=== PATIENT | female | born 1990 | race Caucasian/White ===

== ENCOUNTER 2019-01-08 10:05 | Emergency (ER) | payer OTHER, SELFPAY ==
[2019-01-08 10:07] VITALS: BP 141/82; PULSE 71; RESP 17; TEMP 37.1; O2SAT 96; BMI 31.4
[2019-01-08 11:12] LABS: Mucous, Urine 0 SEEN /hpf (<or=2+); Red Blood Cells-Urine 0 SEEN /hpf (0-5)
[2019-01-08 11:16] LABS: Eosinophils% 4.4 % (0-5); Hematocrit 43.7 % (37-47); Hemoglobin 14.5 g/dL (12.0-15.0); Lymphocyte % 32.2 % (19-41); Mean Corp Hgb Conc 33.2 g/dL (32-36); Mean Corpuscular Hgb 29.7 pg (27.0-32.0); Mean Corpuscular Volume 89.4 fL (81-99); Mean Platelet Vol. 9.1 fl (6.2-12.0); Monocyte% 7.2 % (0-10); Neutrophil % 55.5 % (47-70); Platelet Count 320 K/mm3 (150-450); RBC Distribution Width SD 39.1 fl (35.1-43.9); Red Blood Count 4.89 M/mm3 (4.2-5.4); White Blood Count 5.9 K/mm3 (4.4-11.0)
[2019-01-08 11:17] LABS: Absolute Lymphocyte Count 1.91 X10^3/uL (0.83-4.51); Absolute Neutrophil Count 3.3 X10^3/uL (2.0-7.7); Basophil# 0.03 X10^3/uL; Basophil% 0.5 % (0-1); Eosinophil# 0.26 X10^3/uL; Lymphocyte # 1.91 X10^3/ul (4.0); Monocyte# 0.43 X10^3/uL; NRBC Flagged by Analyzer 0 % (0-5)
[2019-01-08 11:19] LABS: Color, Urine Yellow (Yellow); Glucose, Dipstick Normal (Normal); Ketone-Dipstick Negative (Negative); Leukocyte Esterase-Dipstick 25 /ul (Negative); Nitrite-Dipstick Negative (Negative); Occult Blood-Urine Negative /ul (Negative); Protein-Dipstick Negative (Negative); Urine Bilirubin Dipstick Negative (Negative); Urine Clarity Clear (Clear); Urine Urobilinogen Normal (Normal); Urine pH 6.5 (5.0 - 8.0)
[2019-01-08 11:22] LABS: Internal QC Validated? YES +Cl - CLEAR BKGD; Pregnancy, Urine Negative Negative
[2019-01-08 11:28] LABS: Bacteria 2+ /hpf (None Seen); Squamous Epithelial Cells - UA 0-5 SEEN /hpf (5-10); White Blood Cells 0-5 SEEN /hpf (0-5)
[2019-01-08 11:37] LABS: ALB/GLOB Ratio 1.1 RATIO (0.9-2.4); AST(SGOT) 36 U/L (15-37); Alanine Aminotransfer ALT/SGPT 81 U/L (13-56); Albumin, Serum 3.8 g/dL (3.2-5.0); Alkaline Phosphatase 64 U/L (45-117); Anion Gap 13 (5-15); BUN 17 mg/dL (7-18); Calcium,Total 9.1 mg/dL (8.5-10.1); Chloride 109 mmol/L (98-107); Creatinine, Serum 1.06 mg/dL (0.55-1.02); EST Glomerular Filtration Rate 66 mL/min (>60); Est Glom Filt Rate - Afr Amer 80 mL/min (>60); Estimated Creatinine Clearance 75.29 ml/min; Globulin 3.6 g/dL (2.2-4.2); Glucose 124 mg/dL (74-106); Potassium 3.6 mmol/L (3.5-5.1); Protein, Total 7.4 g/dL (6.4-8.2); Sodium Level 144 mmol/L (136-145)
[2019-01-08 13:03] LABS: Chlamydia Trachomatis by PCR Negative (Negative); Neisserai gonorrhoeae by PCR Negative (Negative); Probe Check PASS; Sample Adequacy Control PASS; Specimen Processing Control PASS
--- NOTE | 2019-01-08 13:44 | ED.VIS.GEN ---
History of Present Illness Informant: Patient Onset: Weeks - 2 Context: Gradual Onset Timing: Continuous Maximum Severity: Mild Associated Symptoms: Fever Narrative: She developed a Bartholin cyst about 2 weeks ago that spontaneously drained. She is been having fevers and feels like she is redeveloping the Bartholin cyst. She was taking Bactrim and then switched to clindamycin. She has been in contact with her [facility] [facility] this week including yesterday. She denies nausea and vomiting. She complains of mild pelvic cramping and back pain. She does not appreciate significant discharge. Has dysuria frequency. Prior similar symptoms: No Recent Illness/Hospitalization: No <Sanjuana Alas - Last Filed: 01/08/19 15:08> <Evelyn Spencer - Last Filed: 01/10/19 11:49> Chief Complaint: Abscess Past Medical History Prior records reviewed: Yes Past Medical History: - - Ovarian cyst ,Migraines, Surgical History: - - Breast lumpectomy, T&A Lives: With Family Smoking Status: Never smoker Drugs: None <Sanjuana Alas - Last Filed: 01/08/19 15:08> <Evelyn Spencer - Last Filed: 01/10/19 11:49> - Allergies and Home Meds Allergies/Adverse Reactions: Allergies nickel Allergy (Verified 01/08/19 10:07) Rash Primary Care Physician: Care Physician,No Primary [Primary Care Provider] - Review of Systems All systems negative except as indicated General: Reports: Fever. Denies: Chills, Sweats Eyes: Denies: Visual changes - bilaterally, Diplopia ENT: Denies: Rhinorrhea, Sore throat Cardiovascular: Denies: Chest pain, Palpitations Respiratory: Denies: Dyspnea, Cough, Dyspnea on exertion Gastrointestinal: Reports: Abdominal pain. Denies: Nausea, Vomiting, Diarrhea, Melena, Hematochezia Genitourinary: Reports: - - Vaginal pain, recent reported Bartholin cyst with spontaneous drainage. Denies: Dysuria, Hematuria, Frequency Musculoskeletal: Denies: Myalgias, Arthralgias, Neck pain, Back pain, Extremity Pain Skin: Denies: Rash, Wounds Neurological: Denies: Headache, Weakness, Numbness <Sanjuana Alas - Last Filed: 01/08/19 15:08> Genitourinary: Reports: - <Evelyn Spencer - Last Filed: 01/10/19 11:49> Physical Exam Vital Signs/Narrative: Vital Signs Temp Pulse Resp BP Pulse Ox 01/08/19 10:07 98.7 F 71 17 141/82 H 96 Inital Vital Signs reviewed: Yes General: Well nourished, Well developed, No Acute Distress Head: Normocephalic, Atraumatic Eyes: Perrl, EOMI ENT: Moist mucous membranes, No rhinorrhea Neck: Supple, Nontender Cardiovascular: Regular rate, Regular rhythm, No murmurs Respiratory: No distress, CTA bilaterally, Chest nontender Abdomen: Soft, Nondistended, Normal bowel sounds, Tender. Negative for: Guarding, Rebound tenderness, Ventral hernia, Inguinal hernia, Umbilical hernia, Hernia reducible, Hernia irreducible, Psoas sign, Obturator sign, Rovsig's sign, Ruiz's sign : - - Cellulitis there is a fair amount of thin white discharge present on exam. Right labia is not swollen and there is no signs of developing Bartholin cyst. There was no cervical motion tenderness or adnexal mass or appreciable tenderness. Back: Nontender, Normal Inspection Extremities: Nontender, No edema Skin: Normal color, No rash Neurological: Alert, Oriented x3, Cranial nerves II-XII grossly intact, Normal Strength, Normal Sensation Psychological: Normal affect, Normal Mood <Sanjuana Alas - Last Filed: 01/08/19 15:08> : - <Evelyn Spencer - Last Filed: 01/10/19 11:49> Diagnostic/Tx/Re-eval - Medical Decision Making Laboratory tests were pursued to rule out sepsis. Her vital signs were stable and she was afebrile. Laboratory tests were also unremarkable. She had no signs of sepsis or toxicity. Pelvic exam revealed no reforming Bartholin cyst. Vaginal discharge was cultured for gonorrhea and chlamydia which was negative. Her discharge is not clumpy like he is and did not have a foul odor like BV. There is no cervical motion tenderness as well. I was able to get a hold of Dr. Leiva her [facility] [facility] who is comfortable patient being discharged to follow-up in the office this week and to continue clindamycin as prescribed. Patient was agreeable to this plan. She was discharged in stable condition. <Sanjuana Alas - Last Filed: 01/08/19 15:08> Labs & Testing WBC 5.9 K/mm3 (4.4-11.0) 01/08/19 10:40 RBC 4.89 M/mm3 (4.2-5.4) 01/08/19 10:40 Hgb 14.5 g/dL (12.0-15.0) 01/08/19 10:40 Hct 43.7 % (37-47) 01/08/19 10:40 MCV 89.4 fL (81-99) 01/08/19 10:40 MCH 29.7 pg (27.0-32.0) 01/08/19 10:40 MCHC 33.2 g/dL (32-36) 01/08/19 10:40 RDW Std Deviation 39.1 fl (35.1-43.9) 01/08/19 10:40 RDW Coeff of Kelsy 12.0 % (11.6-14.6) 01/08/19 10:40 Plt Count 320 K/mm3 (150-450) 01/08/19 10:40 MPV 9.1 fl (6.2-12.0) 01/08/19 10:40 Immature Gran % (Auto) 0.200 % (0.0-0.9) 01/08/19 10:40 Neut % (Auto) 55.5 % (47-70) 01/08/19 10:40 Lymph % (Auto) 32.2 % (19-41) 01/08/19 10:40 Larue % (Auto) 7.2 % (0-10) 01/08/19 10:40 Eos % (Auto) 4.4 % (0-5) 01/08/19 10:40 Baso % (Auto) 0.5 % (0-1) 01/08/19 10:40 Absolute Neuts (auto) 3.3 X10^3/uL (2.0-7.7) 01/08/19 10:40 Absolute Lymphs (auto) 1.91 X10^3/uL (0.83-4.51) 01/08/19 10:40 Nucleated RBC % 0 % (0-5) 01/08/19 10:40 Sodium 144 mmol/L (136-145) 01/08/19 10:40 Potassium 3.6 mmol/L (3.5-5.1) 01/08/19 10:40 Chloride 109 mmol/L (98-107) H 01/08/19 10:40 Carbon Dioxide 22.0 mmol/L (21.0-32.0) 01/08/19 10:40 Anion Gap 13 (5-15) 01/08/19 10:40 BUN 17 mg/dL (7-18) 01/08/19 10:40 Creatinine 1.06 mg/dL (0.55-1.02) H 01/08/19 10:40 Estim Creat Clear Calc 75.29 ml/min 01/08/19 10:40 Est GFR (MDRD) Af Amer 80 mL/min (>60) 01/08/19 10:40 Est GFR (MDRD) Non-Af 66 mL/min (>60) 01/08/19 10:40 BUN/Creatinine Ratio 16.0 RATIO (10-20) 01/08/19 10:40 Glucose 124 mg/dL (74-106) H 01/08/19 10:40 Calcium 9.1 mg/dL (8.5-10.1) 01/08/19 10:40 Total Bilirubin 0.90 mg/dL (0.20-1.00) 01/08/19 10:40 AST 36 U/L (15-37) 01/08/19 10:40 ALT 81 U/L (13-56) H 01/08/19 10:40 Alkaline Phosphatase 64 U/L (45-117) 01/08/19 10:40 Total Protein 7.4 g/dL (6.4-8.2) 01/08/19 10:40 Albumin 3.8 g/dL (3.2-5.0) 01/08/19 10:40 Globulin 3.6 g/dL (2.2-4.2) 01/08/19 10:40 Albumin/Globulin Ratio 1.1 RATIO (0.9-2.4) 01/08/19 10:40 Urine Color Yellow (Yellow) 01/08/19 10:55 Urine Clarity Clear (Clear) 01/08/19 10:55 Urine pH 6.5 (5.0 - 8.0) 01/08/19 10:55 Ur Specific [place] 1.020 (1.002-1.030) 01/08/19 10:55 Urine Protein Negative mg/dl (Negative) 01/08/19 10:55 Urine Glucose (UA) Normal mg/dl (Normal) 01/08/19 10:55 Urine Ketones Negative mg/dl (Negative) 01/08/19 10:55 Urine Occult Blood Negative /ul (Negative) 01/08/19 10:55 Urine Nitrite Negative (Negative) 01/08/19 10:55 Urine Bilirubin Negative mg/dL (Negative) 01/08/19 10:55 Urine Urobilinogen Normal mg/dl (Normal) 01/08/19 10:55 Ur Leukocyte Esterase 25 /ul (Negative) H 01/08/19 10:55 Urine RBC 0 SEEN /hpf (0-5) 01/08/19 10:55 Urine WBC 0-5 SEEN /hpf (0-5) 01/08/19 10:55 Ur Squamous Epith Cells 0-5 SEEN /hpf (5-10) 01/08/19 10:55 Urine Bacteria 2+ /hpf (None Seen) 01/08/19 10:55 Urine Mucus 0 SEEN /hpf (<or=2+) 01/08/19 10:55 Urine Test Negative Negative 01/08/19 10:55 Chlam trachomat DNA PCR Negative (Negative) 01/08/19 10:55 N.gonorrhoeae DNA (PCR) Negative (Negative) 01/08/19 10:55 - Medical Decision Making Patient is evaluated by meself in addition to [employer]. Patient is evaluated for continued subjective fevers and lower abdominal pain. She is currently on antibiotics for Bartholin gland cyst that had spontaneously drained. Patient is afebrile in the ED and has normal vital signs. She is well appearing and her abdomen is soft. I was present for pelvic exam. She does not had adnexal tenderness or abnormal vaginal discharge. I do not suspect PID or TOA at this time. In addition, patient did have a small lesion on her left labia majora that is tender to palpation. This is swabbed for HSV, however it does appear atypical for HSV. She has normal WBC at no other findings consistent with sepsis. The cause of the patients's symptoms is not clear, however I do agree that she is a good candidate for further outpatient evaluation by her OBGYN. Case discussed with Dr. Leiva OBGYN, who is updated and agreeable with this plan. <Evelyn Spencer - Last Filed: 01/10/19 11:49> ED Disposition <Sanjuana Alas - Last Filed: 01/08/19 15:08> <Evelyn Spencer - Last Filed: 01/10/19 11:49> - Plan for ED Patient: Disposition: Home or Assisted Living Diagnosis: Fever Instructions: FEBRILE ILLNESS, Uncertain Cause (Adult) Referrals: Care Physician,No Primary [Primary Care Provider] - Additional Instructions: Continue antibiotics. [facility]
[2019-01-08 13:57] VITALS: PULSE 77; RESP 16; TEMP 37.7
== END 2019-01-08 13:57 | disposition home or self-care (01) ==
PROVIDERS: Emergency Provider Nurse Practitioner
DX: R50.9 Fever, unspecified (principal); N90.89 Other specified noninflammatory disorders of vulva and perineum; N89.8 Other specified noninflammatory disorders of vagina; R10.30 Lower abdominal pain, unspecified; M54.9 Dorsalgia, unspecified
CPT/HCPCS: 80053; 81001; 81025; 85025; 87255; 87491; 87591; 99284; A4216

== ENCOUNTER 2019-05-03 18:15 | Emergency (ER) | payer OTHER, SELFPAY ==
[2019-05-03 18:17] VITALS: BP 150/86; PULSE 74; RESP 19; TEMP 37.1; O2SAT 99; BMI 32.8
--- NOTE | 2019-05-03 18:40 | US_ITS ---
STUDY: ABDOMINAL ULTRASOUND - RIGHT UPPER QUADRANT REASON FOR VISIT: Female, 29 years old RUQ PAIN INTENSE FOR A WEEK AND A HALF TECHNIQUE: Ultrasound evaluation of the right upper quadrant was performed with real-time and static sheldon-scale imaging. TECHNICAL QUALITY: Adequate. COMPARISON: None. FINDINGS: Liver: The liver measures 14.7 cm. There is increased echogenicity consistent with fatty infiltration. The bile ducts are within normal limits. There is hepatic color flow. The direction of portal flow is hepatopetal. 2.4 x 1.9 x 1.9 cm hypoechoic solid lesion of the medial superior right liver and a 2.4 x 2.7 x 2.2 cm hypoechoic solid lesion of the inferior right liver. Gallbladder: Normal distended gallbladder. The gallbladder wall measures 1.8 mm. There is a negative sonographic Ruiz''s sign. There is no pericholecystic fluid. There are no gallstones. Common Bile Duct (C.B.D.): The common bile duct measures 4.0 mm. Pancreas: Normal size of the head, body and tail of the pancreas. There is normal echogenicity of the pancreas. There is no demonstrated pancreatic mass or cyst. Right Kidney: Normal size of the right kidney. The right kidney measures 10.5 x 5.3 x 4.6 cm. Normal renal cortex. The right cortex measures 1.2 cm. There is no demonstrated renal mass or cyst. There is no right hydronephrosis. US/Gallbladder IMPRESSION: Normal gallbladder. Normal pancreas. Normal right kidney. 2.4 x 1.9 x 1.9 cm lesion of the medial superior right liver and a 2.4 x 2.7 x 2.2 cm solid lesion of the inferior right liver likely to be benign hemangioma in this age group. Electronically Signed: Jen Stevens MD at 20:26 EST , Service support ,
--- NOTE | 2019-05-03 18:43 | ED.VIS.GI ---
History of Present Illness Chief Complaint: Abd Pain Informant: Patient - Abdominal Pain/Flank Pain Onset: Days Context: Gradual Onset Timing: Intermittent Quality: Sharp, Stabbing Location: RUQ - Nausea/Vomiting/Emesis GI Symptom: Nausea, Vomiting Narrative: Patient is a 29-year-old female with history of abnormal HIDA scan presenting with worsening right upper quadrant pain. She states she has had right upper quadrant pain and digestion issues for the past few months. She had HIDA scan outpatient which showed poor function and is scheduled to see Dr. Hernandez for surgical consultation tomorrow morning. Patient states that for the past week she has had significantly worsening pain in her right upper quadrant. It became unbearable today which is why she came to the emergency room. She describes it as sharp and stabbing and it radiates to her right shoulder blade. She had vomiting on [place], 1 week ago but none since. She has associated nausea. States the pain was so bad today she felt like she might pass out. Patient ate a tricky sandwich, bagel and scrambled eggs today. She did just drive back from [place] where she was visiting family. She denies any associated urinary symptoms. She denies any abnormal vaginal discharge. She has not had a. For the past 7 months but that is because she had a Nexplanon placed. She notes her bowel movements have been slightly more regular and looser than normal over the past few months. She denies associated chest pain, shortness of breath or difficulty breathing. She denies any other complaints at this time. Past Medical History - Allergies and Home Meds Allergies/Adverse Reactions: Allergies nickel Allergy (Verified 05/03/19 18:16) Rash Primary Care Physician: Suzanne Manzanares NP-C [Primary Care Provider] - Surgical History: - - Breast lumpectomy, T&A Smoking Status: Never smoker Review of Systems General: Denies: Chills, Fever, Sweats Eyes: Denies: Visual changes - bilaterally, Diplopia ENT: Denies: Rhinorrhea, Sore throat Cardiovascular: Denies: Chest pain, Palpitations Respiratory: Denies: Dyspnea, Cough, Dyspnea on exertion Gastrointestinal: Reports: Abdominal pain, Nausea, Vomiting. Denies: Diarrhea, Melena, Hematochezia Genitourinary: Denies: Dysuria, Hematuria, Frequency Musculoskeletal: Denies: Back pain, Extremity Pain Skin: Denies: Rash, Wounds Neurological: Denies: Headache, Weakness, Numbness Physical Exam Vital Signs/Narrative: Vital Signs Temp Pulse Resp BP Pulse Ox 05/03/19 18:17 98.7 F 74 19 H 150/86 H 99 Inital Vital Signs reviewed: Yes General: Well nourished, Well developed, No Acute Distress Head: Normocephalic, Atraumatic Eyes: Perrl, EOMI ENT: Moist mucous membranes, No rhinorrhea Neck: Supple, Nontender Cardiovascular: Regular rate, Regular rhythm, No murmurs Respiratory: No distress, CTA bilaterally, Chest nontender Abdomen: Soft, Nondistended, Normal bowel sounds, Tender - Right upper quadrant. Negative for: Guarding, Rebound tenderness, Ruiz's sign Back: Nontender, Normal Inspection. Negative for: CVA tenderness Extremities: Nontender, No edema Skin: Normal color, No rash Neurological: Alert, Oriented x3, Cranial nerves II-XII grossly intact, Normal Strength, Normal Sensation Psychological: Normal affect, Normal Mood Diagnostic/Tx/Re-eval Clinical Impression(s) from Imaging Studies Gallbladder Ultrasound 05/03/19 18:40 IMPRESSION: Normal gallbladder. Normal pancreas. Normal right kidney. 2.4 x 1.9 x 1.9 cm lesion of the medial superior right liver and a 2.4 x 2.7 x 2.2 cm solid lesion of the inferior right liver likely to be benign hemangioma in this age group. Electronically Signed: Jen Stevens MD at 20:26 EST , Service support , Laboratory Data 05/03/19 05/03/19 05/03/19 18:55 19:00 19:00 WBC 7.4 RBC 4.86 Hgb 14.0 Hct 42.3 MCV 87.0 MCH 28.8 MCHC 33.1 RDW Std Deviation 38.3 RDW Coeff of Kelsy 12.0 Plt Count 304 MPV 9.7 Immature Gran % (Auto) 0.100 Neut % (Auto) 57.7 Lymph % (Auto) 32.3 [place] % (Auto) 6.5 Eos % (Auto) 2.7 Baso % (Auto) 0.7 Absolute Neuts (auto) 4.3 Absolute Lymphs (auto) 2.40 Nucleated RBC % 0 Sodium 141 Potassium 3.5 Chloride 110 H Carbon Dioxide 23.0 Anion Gap 8 BUN 15 Creatinine 0.80 Estim Creat Clear Calc 98.88 Est GFR (MDRD) Af Amer 110 Est GFR (MDRD) Non-Af 91 BUN/Creatinine Ratio 18.8 Glucose 89 Calcium 8.6 Total Bilirubin 0.30 Direct Bilirubin 0.10 AST 13 L ALT 39 Alkaline Phosphatase 57 Total Protein 7.9 Albumin 3.9 Globulin 4.0 Lipase 116 Serum , Qual Urine Color Yellow Urine Clarity Sl. Cloudy Urine pH 5.0 Ur Specific [place] 1.025 Urine Protein 15 H Urine Glucose (UA) Normal Urine Ketones Negative Urine Occult Blood 25 H Urine Nitrite Negative Urine Bilirubin Negative Urine Urobilinogen Normal Ur Leukocyte Esterase 500 H Urine RBC 0-5 SEEN Urine WBC 10-25 SEEN Ur Squamous Epith Cells 5-10 SEEN Amorphous Sediment 1+ URATE Urine Bacteria 2+ Urine Mucus 0 SEEN 05/03/19 19:00 WBC RBC Hgb Hct MCV MCH MCHC RDW Std Deviation RDW Coeff of Kelsy Plt Count MPV Immature Gran % (Auto) Neut % (Auto) Lymph % (Auto) [place] % (Auto) Eos % (Auto) Baso % (Auto) Absolute Neuts (auto) Absolute Lymphs (auto) Nucleated RBC % Sodium Potassium Chloride Carbon Dioxide Anion Gap BUN Creatinine Estim Creat Clear Calc Est GFR (MDRD) Af Amer Est GFR (MDRD) Non-Af BUN/Creatinine Ratio Glucose Calcium Total Bilirubin Direct Bilirubin AST ALT Alkaline Phosphatase Total Protein Albumin Globulin Lipase Serum , Qual NEGATIVE Urine Color Urine Clarity Urine pH Ur Specific [place] Urine Protein Urine Glucose (UA) Urine Ketones Urine Occult Blood Urine Nitrite Urine Bilirubin Urine Urobilinogen Ur Leukocyte Esterase Urine RBC Urine WBC Ur Squamous Epith Cells Amorphous Sediment Urine Bacteria Urine Mucus - Medical Decision Making Patient is evaluated for worsening right abdominal pain. She has had some urinary frequency. She has known dysfunction of her gallbladder. Ultrasound and lab work obtained to rule out acute cholecystitis. This is all largely normal. Urinalysis does show 500 leuk esterase which might be consistent with UTI. This also could be contributing to her symptoms. She will be covered for pyelonephritis with a 7 day course of Keflex. Urine culture is sent. Patient has appointment to see Dr. Hernandez, surgery tomorrow for further evaluation of her gallbladder. At this time I feel that she is stable for outpatient follow-up. Her abdomen is soft and I do not think a CT the abdomen pelvis is indicated at this time. She is otherwise well-appearing.Patient is given 1 dose of morphine and Zofran for symptom control as well as IV fluids. She is given first dose of antibiotics in the emergency room. ED Disposition - Plan for ED Patient: Disposition: Home or Assisted Living Diagnosis: Abdominal pain, UTI (urinary tract infection) Instructions: ABDOMINAL PAIN, Unknown Cause, (Female), Bladder Infection, Female (Adult) Prescriptions: Cephalexin [Keflex] 500 mg PO BID #14 cap Prescription Printed Ibuprofen [Motrin] 600 mg PO Q8H PRN PRN #20 tab PRN Reason: Pain Or Fever Prescription Printed Ondansetron [Zofran Odt] 4 mg PO Q8H PRN PRN #10 tab PRN Reason: Nausea Prescription Printed Referrals: Suzanne Manzanares NP-C [Primary Care Provider] - Additional Instructions: Your testing today shows that you have findings associated with a urinary tract infection and possible early kidney infection. You will be started on antibiotics for this. Please continue to follow-up with your surgeon tomorrow for further evaluation of your gallbladder. Return to emergency with any worsening symptoms.
[2019-05-03] MEDS: 0.9% Normal Saline 1,000 ML 999 ML IV (18:53)
[2019-05-03] MEDS: Morphine 4 MG/ML Syringe IV (18:57)
[2019-05-03] MEDS: Ondansetron 4 MG/2 ML Vial IV (18:57)
[2019-05-03 19:01] LABS: Mucous, Urine 0 SEEN /hpf (<or=2+)
[2019-05-03 19:03] LABS: Color, Urine Yellow (Yellow); Glucose, Dipstick Normal (Normal); Ketone-Dipstick Negative (Negative); Leukocyte Esterase-Dipstick 500 /ul (Negative); Nitrite-Dipstick Negative (Negative); Occult Blood-Urine 25 /ul (Negative); Protein-Dipstick 15 mg/dl (Negative); Specific Gravity, Urine 1.025 (1.002-1.030); Urine Bilirubin Dipstick Negative (Negative); Urine Clarity Sl. Cloudy (Clear); Urine Urobilinogen Normal (Normal)
[2019-05-03 19:12] LABS: Amorphous Sediment 1+ URATE; Bacteria 2+ /hpf (None Seen); Red Blood Cells-Urine 0-5 SEEN /hpf (0-5); Squamous Epithelial Cells - UA 5-10 SEEN /hpf (5-10); White Blood Cells 10-25 SEEN /hpf (0-5)
[2019-05-03 19:30] LABS: Absolute Neutrophil Count 4.3 X10^3/uL (2.0-7.7); Basophil# 0.05 X10^3/uL; Basophil% 0.7 % (0-1); Eosinophils% 2.7 % (0-5); Hematocrit 42.3 % (37-47); Lymphocyte % 32.3 % (19-41); Mean Corp Hgb Conc 33.1 g/dL (32-36); Mean Corpuscular Hgb 28.8 pg (27.0-32.0); Mean Platelet Vol. 9.7 fl (6.2-12.0); Monocyte# 0.48 X10^3/uL; Monocyte% 6.5 % (0-10); NRBC Flagged by Analyzer 0 % (0-5); Neutrophil # 4.29 X10^3/uL (2.7-7.7); Neutrophil % 57.7 % (47-70); Platelet Count 304 K/mm3 (150-450); RBC Distribution Width SD 38.3 fl (35.1-43.9); Red Blood Count 4.86 M/mm3 (4.2-5.4); White Blood Count 7.4 K/mm3 (4.4-11.0)
[2019-05-03 19:49] LABS: AST(SGOT) 13 U/L (15-37); Alanine Aminotransfer ALT/SGPT 39 U/L (13-56); Albumin, Serum 3.9 g/dL (3.2-5.0); Alkaline Phosphatase 57 U/L (45-117); Anion Gap 8 (5-15); BUN 15 mg/dL (7-18); BUN/Creat Ratio 18.8 RATIO (10-20); Calcium,Total 8.6 mg/dL (8.5-10.1); Chloride 110 mmol/L (98-107); EST Glomerular Filtration Rate 91 mL/min (>60); Est Glom Filt Rate - Afr Amer 110 mL/min (>60); Estimated Creatinine Clearance 98.88 ml/min; Glucose 89 mg/dL (74-106); Internal QC Validated? YES +Cl - CLEAR BKGD; Lipase 116 U/L (73-393); Potassium 3.5 mmol/L (3.5-5.1); Pregnancy, Serum, hCG Quali. NEGATIVE Negative; Protein, Total 7.9 g/dL (6.4-8.2); Sodium Level 141 mmol/L (136-145)
[2019-05-03] MEDS: Cephalexin 250 MG Capsule 500 MG PO (21:34)
[2019-05-03 21:43] VITALS: BP 119/74; PULSE 82; RESP 18; O2SAT 96
== END 2019-05-03 21:44 | disposition home or self-care (01) ==
PROVIDERS: Emergency Provider Emergency Medicine; Family Provider Nurse Practitioner Family; PCP Nurse Practitioner Family
DX: N39.0 Urinary tract infection, site not specified (principal); K76.89 Other specified diseases of liver
CPT/HCPCS: 76705; 80048; 80076; 81001; 83690; 84703; 85025; 87086; 87088; 96361; 96374; 96375; 99284; J7030; A4216; J2405

== ENCOUNTER 2019-05-08 12:02 | Day surgery (SDC) | payer OTHER, SELFPAY ==
--- NOTE | 2019-05-07 19:05 | HP.PCM_ITS ---
History and Physical Date of Admission: 05/08/19 Ilda Leslie 1990 ? ? REFERRING PHYSICIAN: Raven León APRN.C* ? CHIEF COMPLAINT: abnormal HIDA ? HPI: The patient is a 29 year old female presents with right upper quadrant abdominal pain. This had been noted for several months, but in the past few weeks, symptoms have become more frequent/constant and intense. An ultrasound of the gallbladder was normal. US 02/15/19 - IMPRESSION: 2.7 cm hypoechoic area/lesion in the right hepatic lobe. ?A CT three-phase liver study may be obtained for further evaluation. Workup - findings of benign nodular hyperplasia of liver. Also symptoms of nausea, especially with fatty foods. Denies fevers. NM 04/20/19 HIDA scan EF 8% ? ? PAST MEDICAL HISTORY ? Breast lump 2013 ? RIGHT breast lump (benign) ? Migraines ? ? PAST SURGICAL HISTORY ? BREAST LUMPECTOMY HX ? 2013 ? RIGHT ? EGD W/O OR W/BRUSH/WASH ? 04/24/2019 ? EGD ? TONSILLECTOMY AND ADENOIDECTOMY HX ? 2011 ? TOOTH EXTRACTION ? 2009 ? wisdom teeth ? ? Current Outpatient Medications ? omeprazole (PRILOSEC) 20 mg capsule Take 1 capsule by mouth daily before breakfast. 1/2 hr before meal. ? etonogestrel (NEXPLANON) subdermal implant 68 mg 68 mg by SUBDERMAL route. ? zonisamide (ZONEGRAN) 100 mg capsule Take 50 mg by mouth twice daily. ? ? ? ALLERGIES: Nickel ? PERSONAL HISTORY: Tobacco Use ? Smoking status: Never Smoker ? Smokeless tobacco: Never Used Substance Use Topics ? Alcohol use: Yes ? ? Alcohol/week: 2.5 standard drinks ? ? Types: 1 Glasses of Wine (5oz) per week ? ? Comment: 1 glass of wine weekly ? Drug use: Never FAMILY HISTORY ? Migraines Father ? ? Cancer Maternal Grandmother ? ? Heart disease Paternal Grandfather ? ? ? Nursing Notes: Dolores Haney LPN 05/04/2019 3:26 PM Signed REVIEW OF SYSTEMS: General: The patient denies fatigue, denies weight loss, denies weight gain, denies feeling hot, and denies feelings of cold. Eyes: The patient denies glaucoma, denies eye injury/surgery, does not wear glasses or contacts. Ear/Nose/Throat: The patient denies allergies, denies hayfever, denies ear infections, and denies bloody noses. Cardiovascular: The patient denies chest pain, denies heart disease, denies high blood pressure,denies cardiac stent, denies prior heart attack, denies irregular heart beat, denies high cholesterol, denies poor circulation, denies heart failure, other cardiac issues, denies claudication, denies cold feet, denies peripheral arterial stent. Respiratory: The patient denies tuberculosis, denies pneumonia, denies frequent cough, denies pulmonary embolism, denies shortness of breath, and denies coughing up blood. Gastrointestinal: probable focal nodular hyerplasia of liver by MRI, has substernal heartburn, has FREDDIE symptoms, denies difficulty swallowing, denies acid reflux, denies ulcers, denies vomiting, denies jaundice/hepatitis, NOTES gallbladder problems, denies black or tarry stools, denies hemorrhoids, denies bleeding from rectum, denies diverticulitis, denies constipation, denies diarrhea, denies loss of stool control, and denies hernias. Kidney/Bladder: The patient denies kidney stones, denies urine infections, and denies bloody urine. Skin: The patient denies a history of skin cancer, denies bleeding/changing moles, and denies a history of skin rash. Neurologic: has migraine headaches, denies a history of epilepsy/convulsions, denies head/spinal injuries, and denies stroke/TIA. Psychiatric: The patient denies psychiatric medications, denies depression, and denies voices, denies substance abuse. Endocrine: The patient denies thyroid disorders, denies diabetes, and denies hormonal problems. Hematologic: The patient denies a history of bruising, denies bleeding, and denies anemia, denies blood clots. Infections: The patient denies a history of measles and mumps, denies rheumatic fever, and denies sexually transmitted diseases. Musculoskeletal: The patient denies back pain/injury, denies back problems, denies sciatica, denies knee/foot trouble, denies arthritis, or denies gout. ? PHYSICAL EXAMINATION: General: The patient is 29 year old female, well nourished, well hydrated in no acute distress. The patient is oriented to time, place, and person. VITALS: Blood pressure 138/72, pulse 118, temperature 37.1 ?C (98.7 ?F), temperature source Temporal, resp. rate 16, height 167.6 cm (5' 6), weight 94.3 kg (208 lb), SpO2 100 %. Body mass index is 33.57 kg/m?. Head ? Normocephalic. EOM intact with sclera clear and no icterus noted. Mouth with mucus membranes moist. Neck - supple with no jugular venous distention noted. Trachea is midline. No carotid bruits noted. No thyroid enlargement or thyroid nodules detected. No masses noted. Lungs ? clear to auscultation. Inspiration upon command. Normal breath sounds in all lung saenz. No rales/rhonchi/wheezing noted. No labored breathing noted, such as retractions. No cough heard. Heart ? normal S1 and S2 auscultated. No rubs/clicks/murmurs noted. Regular rate. Abdomen ? soft and benign, though tender in right upper quadrant with no pe ritoneal signs. Normal bowel sounds. No abdominal bruits noted. Difficult to determine if any masses or organomegaly due to body habitus. Extremities ? no calf tenderness or swelling noted. No pitting edema noted. No obvious deformity noted. Skin ? no rashes noted. Normal skin integrity. Neurological ? gait normal, no focal deficits noted Psych ? calm and appropriate RADIOLOGIC STUDIES: As Noted ? IMPRESSION: right upper quadrant abdominal pain, abnormal HIDA scan ? PLAN: I have discussed the above with the patient and her who is present with her. I have offered trial of Bentyl I have offered laparoscopic cholecystectomy, possible cholangiograms. I have explained the procedure to the patient. I have counseled the patient as to the risks of the procedure, including but not limited to: infection, bleeding, injury to any blood vessels/nerves, scar tissue, injury to any intraabdominal organs, injury to bowel/bladder, injury to the common bile duct/biliary tree, bile leakage, intraabdominal abscess/bleeding, hernias at incisional sites, wound infections, complications of anesthesia, etc. ? the patient understands. The patient wishes to proceed with surgery. I have answered all questions to the patient?s satisfaction and the patient has no further questions. . Diagnoses: (R10.11) Right upper quadrant abdominal pain (primary encounter diagnosis) (R94.8) Abnormal biliary HIDA scan Return to Clinic: The patient is instructed to follow-up with me after the procedure
[2019-05-08] VITALS (8 sets, daily range): BP systolic 89–122; BP diastolic 51–73; PULSE 58–78; RESP 16; TEMP 36.6–37.3; O2SAT 91–98; BMI 32.5
[2019-05-08] MEDS: Lactated Ringers 1,000 ML 75 ML IV ×3 (12:42→17:14)
[2019-05-08 12:47] LABS: Internal QC Validated? YES +Cl - CLEAR BKGD; Pregnancy, Urine Negative Negative
--- NOTE | 2019-05-08 12:59 | EKG12_ITS ---
Test Reason : PRE-OP Blood Pressure : / mmHG Vent. Rate : 067 BPM Atrial Rate : 067 BPM P-R Int : 142 ms QRS Dur : 094 ms QT Int : 406 ms P-R-T Axes : 035 018 014 degrees QTc Int : 429 ms Normal sinus rhythm Normal ECG Confirmed by DARIN BEARD, RONA ([id number]), metropolitan editor ANTHONY PEARL ([id number] on 05/10/2019 11:14:31 AM Referred By: Paige Hernandez Confirmed By:RONA WEBSTER MD
--- NOTE | 2019-05-08 14:25 | RAD_ITS ---
CLINICAL HISTORY: Female, 29 years old. Pain PROCEDURE: CHOLANGIOGRAM - intraoperative FLUOROSCOPY TIME (if supplied): (8) minutes/seconds Placement of the catheter and the procedure were performed by: Dr. Hernandez Fluoroscopy was provided by research technologist, who was present in the room time of the procedure. TECHNIQUE: Single film was obtained in the AP projection utilizing fluoroscopic guidance during intraoperative cholangiogram. FINDINGS: The common hepatic and common bile ducts are normal caliber without evidence for intraductal stones. There is emptying of contrast into the small bowel. There is no filling of the gallbladder consistent with cholecystectomy RAD/Cholangiogram/ O R,Initial IMPRESSION: Normal intraoperative cholangiogram status post cholecystectomy Electronically Signed: Thee Aranda MD at 15:55 EST , Service support ,
--- NOTE | 2019-05-08 14:35 | GALL_PTH ---
PATIENT: NIKI GRANDE LOC: [facility] U#:[id number] AGE/SX: 29/F ROOM: RE05/08/[address]: Dr. Paige Hernandez MD : 1990 BED: DIS: 05/08/2019 SPEC #: [id number] RECD: 05/08/19 16:55 STATUS: BRADLEY REHeath #: [id number] GARY: 05/08/19 14:[address]: Paige Hernandez DEPT: SURGICAL PATHOLOGY RECD BY: Robbie Bazzi ENTERED: 05/09/19 13:08 SP TYPE: LUCIA DURÁN DR: Suzanne Manzanares, FREELANCE PATTERNMAKER-C Tissues: Gallbladder, NOS Procedures: Surgery Specimen Level III HEADER OPERATION: Laparoscopic cholecystectomy with IOC PRE-OP DIAGNOSIS: Right upper quadrant pain, abnormal HIDA TISSUE SUBMITTED: Gallbladder MICROSCOPIC DIAGNOSIS Gallbladder, cholecystectomy: Chronic cholecystitis. No stones are identified in the container or in the gallbladder. SJ:marina 05/10/19 MICROSCOPIC DESCRIPTION Slides are reviewed. GROSS DESCRIPTION Received is one container labeled with the patient's name and designated gallbladder. The specimen consists of a gallbladder measuring 6 cm in length and 2.5 cm in diameter. The external surface is pink-zepeda, smooth and glistening for the most part. Focally it is granular, hemorrhagic and contains cautery artifact. The gallbladder contains green-yellow mucoid bile. No stones are identified in the container or in the gallbladder. The mucosa is bile-stained and without any mass lesions. The gallbladder wall measures up to 0.3 cm in thickness. Chief Deputy sections from the gallbladder and the cystic duct are submitted in one cassette. / SJ:marina 05/09/19 TC:3 CPT: 33343
[2019-05-08] MEDS: Bupiv/Epi 0.25% 30 ML Vial (15:50)
--- NOTE | 2019-05-08 15:57 | DCINST_ITS ---
Discharge Diet: No Restrictions - avoid carbonated beverages for a couple of days drink plenty of fluids, water is best Discharge Activity: Return to Normal Activity, May not drive while taking narcotic pain medications. Lifting Restrictions: no lifting greater than 20 pounds for two weeks Call your doctor if your incision/area has: Continuous Slow Oozing, Foul Smelling Discharge Call your doctor if you observe: Fever of 101 or Higher Additional Dressing/Incision Instructions:: leave dressings in place. may get wet in shower. do not scrub in area of dressings. do not soak - no tub baths/swimming Additional Instructions: recommended pain medication regimen - take 650 mg acetaminophen (Tylenol) then in 3-4 hours take 600 mg ibuprofen (Motrin), then in three to four hours take 650 mg of acetaminophen, then in three to four hours take 600 mg ibuprofen and so on for 2-3 days take prescription narcotic pain medication for breakthrough pain (pain not controlled with above) and at night Allergies/Adverse Reactions: Allergies nickel Allergy (Verified 05/08/19 12:24) Rash Medications to take at Discharge Etonogestrel [Nexplanon] 68 mg SQ X1 01/08/19 Cephalexin [Keflex] 500 mg PO BID #14 cap 05/03/19 Ibuprofen [Motrin] 600 mg PO Q8H PRN PRN #20 tab 05/03/19 Omeprazole 20 mg PO DAILY 05/03/19 Ondansetron [Zofran Odt] 4 mg PO Q8H PRN PRN #10 tab 05/03/19 Zonisamide 50 mg PO BID 05/03/19 Primary Care Physician: Suzanne Manzanares NP-C [Primary Care Provider] - Test Results: Test results from this visit will be discussed in further detail at your follow- up appointment, if applicable. Please Follow Up With: Paige Hernandez MD - When: to be seen in 10-14 days, please call for date and time, thank you
--- NOTE | 2019-05-08 16:03 | PCM.OPRPT ---
Report of Operation Date of Procedure: 05/08/19 Pre-Operative Diagnosis: right upper quadrant abdominal pain, abnormal HIDA scan Post-Operative Diagnosis: right upper quadrant abdominal pain, abnormal HIDA scan. chronic cholecystitis. normal IOC Surgery/Procedure Performed:: laparoscopic cholecystectomy with cholangiograms Description of Surgical Findings:: fatty infiltration of the liver, normal cholangiograms, chronic cholecystitis - omental adhesions to gallbladder surface front desk supervisor: Gaurang Valerio Type of Anesthesia:: General Anesthesiologist: Sandeep Ring Specimen's removed: gallbladder and contents Estimated Blood Loss (mL): < 10 ml Fluids Replaced: 1400 ml RL Description of Procedure: After informed consent was given, the patient was brought to the Operating Room. Appropriate time out protocol was followed. She was then placed in the supine position. The patient was then placed under general endotracheal anesthesia. The abdomen was then prepped with a sterile surgical skin preparation and sterile surgical drapes were placed. The infraumbilical skin fold was grasped with penetrating clamps and the skin and subcutaneous tissues were infiltrated with 0.25% marcaine with epinephrine. A skin incision was then made with a 15 blade scalpel. The anterior abdominal wall was elevated and a Veress needle was carefully inserted into the intraabdominal cavity. It was checked to be in the proper position with a normal saline drop test. A CO2 pneumoperitoneum was then created. Once this was achieved, then the Veress needle was removed and an 11mm trocar was placed in its stead. A 10mm laparoscope was then inserted into the trocar and careful attention was directed to the intraabdominal contents. There was no evidence of injury to any intraabdominal organs from insertion of the Veress needle or the trocar. Under direct visualization, a 5mm subxiphoid trocar and two lateral 5mm right subcostal trocars were placed. The skin and subcutaneous tissues at these sites were infiltrated with 0.25% marcaine with epinephrine prior to placement of these trocars. Attention was then directed to the right upper quadrant of the abdomen. The patient was noted to have fatty infiltration of the liver with blunted liver edges. The gallbladder had adhesions to its free surface, which was take down by blunt dissection. Graspers were placed in the lateral trocars to grasp the distal aspect of the gallbladder and direct it cephalad and to grasp the gallbladder at Alfaro?s pouch and direct it laterally. Dissection then began on the proximal gallbladder continuing down to the area of the triangle of Calot to bluntly dissect out the cystic duct. The neck of the gallbladder was identified and blunt dissection continued to dissect out a segment of the cystic duct. A clip was then placed on the neck of the gallbladder. A small ductotomy was then made. A Ranfac catheter was brought in through a separate skin incision and placed into the cystic duct. An intraoperative cholangiogram was performed under fluoroscopy. The xray revealed no lesions in the common bile duct and good flow into the duodenum. The Ranfac catheter was then removed and two clips were placed proximal to the ductotomy and the cystic duct was then transected. The cystic artery was visualized and bluntly isolated and then two clips were placed proximally and one clip distally and then it was transected between the proximal and distal clips. The gallbladder was then from the liver bed using electrocautery and thus able to be brought out of the umbilical port. It was then forwarded to pathology for analysis. The liver bed was carefully examined. There was no evidence of bile leakage or bleeding. The cystic duct stump and cystic artery stump had their clips intact and there was no evidence of bile leakage or bleeding. The remainder of the abdomen was grossly normal. The CO2 was released and all trocars removed intact. The periumbilical fascia was approximated with a [id number] 0 vicryl suture. All skin incision were closed with 4-0 monocryl in a subdermal fashion. Cavilol and Steristrips were used to reinforce the skin closure. Sterile dressings were applied to all wounds. The patient was extubated and brought to the Recovery Room in stable condition. - Complications none noted - Admit VTE Documentation VTE Present on Admission: Yes VTE Mechan Device Prophylaxis: SCD's
[2019-05-08] MEDS: HYDROcodone Bitartrate/Apap 5/325 Tablet PO (19:19)
== END 2019-05-08 19:48 | disposition home or self-care (01) ==
LOC: SDC 12:09 → AC 12:09 → MS3 12:18
PROVIDERS: Anesthesiology; Family Provider Nurse Practitioner Family; PCP Nurse Practitioner Family; Referring Provider Surgery; Visit Provider Surgery
PROC: (CPT 47610; principal; 2019-05-08 14:15)
DX: K81.1 Chronic cholecystitis (principal); K82.8 Other specified diseases of gallbladder; K76.0 Fatty (change of) liver, not elsewhere classified; K21.9 Gastro-esophageal reflux disease without esophagitis; G43.909 Migraine, unspecified, not intractable, without status migrainosus
CPT/HCPCS: 47563; 74300; 76000; 81025; 88304; 93005; J7050; J7120; J2405

== ENCOUNTER 2019-09-25 20:47 | Emergency (ER) | payer OTHER, SELFPAY ==
[2019-05-08 12:37] VITALS: BMI 32.5
[2019-09-25 20:49] VITALS: BP 147/88; PULSE 108; RESP 16; TEMP 36.8; O2SAT 97; BMI 32.3
--- NOTE | 2019-09-25 21:04 | EKG12_ITS ---
Test Reason : DYSRHYTHMIA Blood Pressure : / mmHG Vent. Rate : 098 BPM Atrial Rate : 098 BPM P-R Int : 142 ms QRS Dur : 092 ms QT Int : 354 ms P-R-T Axes : 041 031 022 degrees QTc Int : 451 ms Normal sinus rhythm Normal ECG Confirmed by DARIN BEARD, RONA ([id number]), editorial writer ANTHONY PEARL ([id number]) on 09/28/2019 2:39:12 PM Referred By: TL Confirmed By:RONA WEBSTER MD
--- NOTE | 2019-09-25 21:05 | ED.DCSUM_ITS ---
History of Present Illness Chief Complaint: Abd Pain Informant: Patient Onset: Today Narrative: Patient primary complaint today is lightheaded symptoms on the car ride home from [place]. No chest pains or shortness of breath. Due to holiday was outside it was warm. Is been no vomiting or diarrhea. No urinary symptoms. Is been dealing with ovarian cysts symptoms for past 2 weeks intermittently pain is a 3 right pelvis. History of Nexplanon placement. None assist required any surgical intervention she recently moved here. Denies cough or fevers. Currently mild nausea. States been drinking water all day, denies alcohol. Prior similar symptoms: No Past Medical History - Allergies and Home Meds Allergies/Adverse Reactions: Allergies nickel Allergy (Verified 09/25/19 20:49) Rash Primary Care Physician: Suzanne Manzanares NP-C [Primary Care Provider] - Past Medical History: - - Migraine headaches, ovarian cyst Surgical History: - - Breast lumpectomy, T&A Smoking Status: Never smoker Review of Systems General: Denies: Chills, Fever, Sweats Eyes: Denies: Visual changes - bilaterally, Diplopia ENT: Denies: Rhinorrhea, Sore throat Cardiovascular: Denies: Chest pain, Palpitations Respiratory: Denies: Dyspnea, Cough, Dyspnea on exertion Gastrointestinal: Reports: Nausea. Denies: Abdominal pain, Vomiting, Diarrhea, Melena, Hematochezia Genitourinary: Denies: Dysuria, Hematuria, Frequency Musculoskeletal: Denies: Back pain, Extremity Pain Skin: Denies: Rash, Wounds Neurological: Denies: Headache, Weakness, Numbness Physical Exam Vital Signs/Narrative: Vital Signs Temp Pulse Resp BP Pulse Ox 09/25/19 20:49 98.2 F 108 H 16 147/88 H 97 Inital Vital Signs reviewed: Yes General: Well nourished, Well developed, No Acute Distress Head: Normocephalic, Atraumatic Eyes: Perrl, EOMI ENT: Moist mucous membranes, No rhinorrhea Neck: Supple, Nontender Cardiovascular: Regular rate, Regular rhythm, No murmurs Respiratory: No distress, CTA bilaterally, Chest nontender Abdomen: Soft, Nondistended, Normal bowel sounds, - - Very mild tenderness right pelvis without guarding or rebound. Negative Ruiz's or McBurney's tenderness. Back: Nontender, Normal Inspection Extremities: Nontender, No edema Skin: Normal color, No rash Neurological: Alert, Oriented x3, Cranial nerves II-XII grossly intact, Normal Strength, Normal Sensation Psychological: Normal affect, Normal Mood Diagnostic/Tx/Re-eval Abnormal Lab Results 09/25/19 09/25/19 09/25/19 21:15 21:15 21:31 WBC 8.3 RBC 4.77 Hgb 13.7 Hct 42.1 MCV 88.3 MCH 28.7 MCHC 32.5 RDW Std Deviation 39.4 RDW Coeff of Kelsy 12.3 Plt Count 329 MPV 9.3 Immature Gran % (Auto) 0.100 Neut % (Auto) 51.3 Lymph % (Auto) 35.5 Thur[place] % (Auto) 7.9 Eos % (Auto) 4.6 Baso % (Auto) 0.6 Absolute Neuts (auto) 4.2 Absolute Lymphs (auto) 2.93 Nucleated RBC % 0 Sodium Potassium Chloride Carbon Dioxide Anion Gap BUN Creatinine Estim Creat Clear Calc Est GFR (MDRD) Af Amer Est GFR (MDRD) Non-Af BUN/Creatinine Ratio Glucose Calcium TSH Urine Color Yellow Urine Clarity Cloudy Urine pH 8.0 Ur Specific [place] 1.015 Urine Protein Negative Urine Glucose (UA) Normal Urine Ketones Negative Urine Occult Blood Negative Urine Nitrite Negative Urine Bilirubin Negative Urine Urobilinogen Normal Ur Leukocyte Esterase Negative Urine RBC 0 SEEN Urine WBC 0 SEEN Ur Squamous Epith Cells 0-5 SEEN Amorphous Sediment 3+ PHOS Urine Bacteria 0 SEEN Urine Mucus 0 SEEN Urine Test Negative 09/25/19 21:31 WBC RBC Hgb Hct MCV MCH MCHC RDW Std Deviation RDW Coeff of Kelsy Plt Count MPV Immature Gran % (Auto) Neut % (Auto) Lymph % (Auto) [place] % (Auto) Eos % (Auto) Baso % (Auto) Absolute Neuts (auto) Absolute Lymphs (auto) Nucleated RBC % Sodium 140 Potassium 3.5 Chloride 111 H Carbon Dioxide 23.0 Anion Gap 6 BUN 10 Creatinine 0.74 Estim Creat Clear Calc 106.90 Est GFR (MDRD) Af Amer 120 Est GFR (MDRD) Non-Af 99 BUN/Creatinine Ratio 13.4 Glucose 111 H Calcium 8.8 TSH 3.05 Urine Color Urine Clarity Urine pH Ur Specific [place] Urine Protein Urine Glucose (UA) Urine Ketones Urine Occult Blood Urine Nitrite Urine Bilirubin Urine Urobilinogen Ur Leukocyte Esterase Urine RBC Urine WBC Ur Squamous Epith Cells Amorphous Sediment Urine Bacteria Urine Mucus Urine Test - EKG Initial EKG Interpretation: Sinus Rhythm - Sinus rate of 98, no ST or T wave changes QTC 451. - Medical Decision Making Patient with no focal neurologic deficits. With her history of being out in the heat, likely a vasovagal episode. She had no chest pains or shortness of breath EKG was normal I did check basic labs and normal hemoglobin electrolytes and thyroid. Urine negative. Given fluids reevaluation remained stable she ambulated department, she will be discharged with outpatient follow-up. She declined any medications for her history of ovarian cysts she does have a other sales support worker established here along with a PCP. ED Disposition - Plan for ED Patient: Disposition: Home or Assisted Living Diagnosis: Vasovagal near syncope, History of ovarian cyst Instructions: ED Near Syncope Vasovagal, ED Cyst Ovarian Referrals: Suzanne Manzanares, HARESH-C [Primary Care Provider] - 3-5 Days Additional Instructions: Follow-up with your other sales support worker for cyst evaluation.
[2019-09-25 21:21] LABS: Bacteria 0 SEEN /hpf (None Seen); Mucous, Urine 0 SEEN /hpf (<or=2+); Red Blood Cells-Urine 0 SEEN /hpf (0-5); White Blood Cells 0 SEEN /hpf (0-5)
[2019-09-25 21:23] LABS: Color, Urine Yellow (Yellow); Glucose, Dipstick Normal (Normal); Ketone-Dipstick Negative (Negative); Leukocyte Esterase-Dipstick Negative /ul (Negative); Nitrite-Dipstick Negative (Negative); Occult Blood-Urine Negative /ul (Negative); Protein-Dipstick Negative (Negative); Specific Gravity, Urine 1.015 (1.002-1.030); Urine Bilirubin Dipstick Negative (Negative); Urine Clarity Cloudy (Clear); Urine Urobilinogen Normal (Normal)
[2019-09-25 21:26] LABS: Internal QC Validated? YES +Cl - CLEAR BKGD; Pregnancy, Urine Negative Negative
[2019-09-25 21:29] LABS: Amorphous Sediment 3+ PHOS; Squamous Epithelial Cells - UA 0-5 SEEN /hpf (5-10)
[2019-09-25] MEDS: 0.9% Normal Saline 1,000 ML 1000 ML IV (21:29)
[2019-09-25] MEDS: Ondansetron 4 MG/2 ML Vial IV (21:30)
[2019-09-25 21:37] LABS: Absolute Lymphocyte Count 2.93 X10^3/uL (0.83-4.51); Absolute Neutrophil Count 4.2 X10^3/uL (2.0-7.7); Basophil# 0.05 X10^3/uL; Basophil% 0.6 % (0-1); Eosinophil# 0.38 X10^3/uL; Eosinophils% 4.6 % (0-5); Hematocrit 42.1 % (37-47); Hemoglobin 13.7 g/dL (12.0-15.0); Lymphocyte # 2.93 X10^3/ul (4.0); Lymphocyte % 35.5 % (19-41); Mean Corp Hgb Conc 32.5 g/dL (32-36); Mean Corpuscular Hgb 28.7 pg (27.0-32.0); Mean Corpuscular Volume 88.3 fL (81-99); Mean Platelet Vol. 9.3 fl (6.2-12.0); Monocyte# 0.65 X10^3/uL; Monocyte% 7.9 % (0-10); NRBC Flagged by Analyzer 0 % (0-5); Neutrophil # 4.23 X10^3/uL (2.7-7.7); Neutrophil % 51.3 % (47-70); Platelet Count 329 K/mm3 (150-450); RBC Distribution Width CV 12.3 % (11.6-14.6); RBC Distribution Width SD 39.4 fl (35.1-43.9); Red Blood Count 4.77 M/mm3 (4.2-5.4); White Blood Count 8.3 K/mm3 (4.4-11.0)
[2019-09-25 22:01] LABS: Anion Gap 6 (5-15); BUN 10 mg/dL (7-18); BUN/Creat Ratio 13.4 RATIO (10-20); Calcium,Total 8.8 mg/dL (8.5-10.1); Chloride 111 mmol/L (98-107); Creatinine, Serum 0.74 mg/dL (0.55-1.02); EST Glomerular Filtration Rate 99 mL/min (>60); Est Glom Filt Rate - Afr Amer 120 mL/min (>60); Glucose 111 mg/dL (74-106); Potassium 3.5 mmol/L (3.5-5.1); Sodium Level 140 mmol/L (136-145); Thyroid Stim Hormone (TSH) 3.05 uIU/mL (0.358-3.74)
[2019-09-25 23:20] VITALS: BP 115/74; PULSE 84; RESP 20; O2SAT 98
[2019-09-25 23:28] VITALS: TEMP 36.8
== END 2019-09-25 23:39 | disposition home or self-care (01) ==
PROVIDERS: Emergency Provider Emergency Medicine; PCP Nurse Practitioner Family
DX: R55 Syncope and collapse (principal); N83.209 Unspecified ovarian cyst, unspecified side
CPT/HCPCS: 80048; 81001; 81025; 84443; 85025; 93005; 96361; 96374; 99284; J7030; J2405

== ENCOUNTER 2019-11-06 12:10 | Emergency (ER) | payer OTHER, SELFPAY ==
[2019-11-06 12:11] VITALS: BP 160/86; PULSE 71; RESP 16; TEMP 36.8; O2SAT 98; BMI 33.9
--- NOTE | 2019-11-06 13:11 | ED.DCSUM_ITS ---
History of Present Illness Chief Complaint: GI Bleed Narrative: Patient presenting for evaluation secondary to rectal bleeding. Patient reports that today she had a bowel movement and had a moderate amount of blood in the toilet. Patient does report that she strained somewhat to have this bowel movement but denies any issues with chronic constipation or any recent diarrhea. Patient had some burning of the anus with the bowel movements but does not frequently have that denies any history of previous rectal bleeding, any history of hemorrhoids. She denies abdominal pain. She denies any night sweats chills fevers or unintended weight loss. Patient reports that she did have a cholecystectomy back in May. She is not on any sort of anticoagulants. Review of systems otherwise negative. Past Medical History - Allergies and Home Meds Allergies/Adverse Reactions: Allergies nickel Allergy (Verified 11/06/19 12:11) Rash Primary Care Physician: Suzanne Manzanares NP-C [Primary Care Provider] - Prior records reviewed: Yes Past Medical History: None Surgical History: cholecystectomy, - - Breast lumpectomy, T&A Smoking Status: Never smoker Alcohol: None Drugs: None Review of Systems All systems negative except as indicated General: Denies: Chills, Fever, Sweats Eyes: Denies: Visual changes - bilaterally, Diplopia ENT: Denies: Rhinorrhea, Sore throat Cardiovascular: Denies: Chest pain, Palpitations Respiratory: Denies: Dyspnea, Cough, Dyspnea on exertion Gastrointestinal: Reports: - - Rectal bleeding Genitourinary: Denies: Dysuria, Hematuria, Frequency Musculoskeletal: Denies: Back pain, Extremity Pain Skin: Denies: Rash, Wounds Neurological: Denies: Headache, Weakness, Numbness Physical Exam Vital Signs/Narrative: Vital Signs Temp Pulse Resp BP Pulse Ox 11/06/19 12:11 98.3 F 71 16 160/86 H 98 Inital Vital Signs reviewed: Yes General: Well nourished, Well developed, No Acute Distress Head: Normocephalic, Atraumatic Eyes: Perrl, EOMI ENT: Moist mucous membranes, No rhinorrhea Neck: Supple, Nontender Cardiovascular: Regular rate, Regular rhythm, No murmurs Respiratory: No distress, CTA bilaterally, Chest nontender Abdomen: Soft, Nontender, Nondistended, Normal bowel sounds Rectal: - - Chaperoned rectal exam shows no evidence of active bleeding. There is a nonthrombosed nonbleeding hemorrhoid at about the 6:00 portion of the anus. No evidence of anal fissures. Stool is brown and nonbloody. Back: Nontender, Normal Inspection Extremities: Nontender, No edema Skin: Normal color, No rash Neurological: Alert, Oriented x3, Cranial nerves II-XII grossly intact, Normal Strength, Normal Sensation Psychological: Normal affect, Normal Mood Diagnostic/Tx/Re-eval - Medical Decision Making She presented secondary to an isolated episode of rectal bleeding. Patient likely has a bleeding internal hemorrhoid that has since resolved. Patient is only had one isolated episode, I do not think that she requires steroid suppositories or GI work-up at this time. Patient was recommended that should she have repeat episodes she needs to follow-up with general surgery for p otential sigmoidoscopy or colonoscopy. She was educated on signs and symptoms which to return. ED Disposition - Plan for ED Patient: Disposition: Home or Assisted Living Diagnosis: Rectal bleeding Instructions: ED Hemorrhoids Referrals: Suzanne Manzanares NP-C [Primary Care Provider] - Paige Hernandez MD [STAFF PHYSICIAN] - As Needed
== END 2019-11-06 13:26 | disposition home or self-care (01) ==
PROVIDERS: Emergency Provider Emergency Medicine; PCP Nurse Practitioner Family
DX: K62.5 Hemorrhage of anus and rectum (principal)
CPT/HCPCS: 99282

== ENCOUNTER 2020-03-19 15:26 | Emergency (ER) | payer OTHER, SELFPAY ==
[2020-03-19 15:27] VITALS: BP 158/90; PULSE 98; RESP 16; TEMP 36.2; O2SAT 99; BMI 36.1
--- NOTE | 2020-03-19 15:45 | ED.VIS.GEN ---
History of Present Illness Chief Complaint: Wound Check Detail of Chief Complaint: Pain IV site dorsum left hand Informant: Patient Onset: Days Context: Sudden Onset Timing: Intermittent Quality: Patient complains of pain dorsum left hand near IV site. She is concerned Location: Dorsum mid left hand Current Severity: 1 Maximum Severity: Moderate Worsened by: Palpation Relieved by: Nothing Associated Symptoms: No associated or constitutional symptoms Narrative: Patient presents because of pain dorsum of the left hand near IV site. She denies fever, chills night sweats. Denies redness, warmth or drainage. She states there was a bump which has resolved. She denies chest pain. Denies shortness of breath. She has no medical problems. She has no drug allergies. Prior similar symptoms: No Recent Illness/Hospitalization: Yes - Past Medical History (1) No significant past medical history Status: Acute Past Medical History - Allergies and Home Meds Allergies/Adverse Reactions: Allergies nickel Allergy (Verified 03/19/20 15:29) Rash Primary Care Physician: Suzanne Manzanares OBGYN SPECIALIST, OBGYN SPECIALIST-C [Primary Care Provider] - Prior records reviewed: Yes Surgical History: cholecystectomy, - - Breast lumpectomy, T&A Lives: Spouse/ Significant Other, With Family Smoking Status: Never smoker Alcohol: None Drugs: None Review of Systems General: Denies: Chills, Fever, Malaise, Subjective, Sweats Cardiovascular: Denies: Chest pain Respiratory: Denies: Dyspnea Musculoskeletal: Reports: Extremity Pain. Denies: Myalgias, Arthralgias, Swelling Skin: Reports: Wounds. Denies: Rash Neurological: Denies: Headache, Weakness, Parasthesia Endocrine: Denies: Polyuria, Polydipsia Hematologic: Denies: Easy bruising, Easy bleeding Physical Exam Vital Signs/Narrative: Vital Signs Temp Pulse Resp BP Pulse Ox 03/19/20 15:27 97.1 F L 98 16 158/90 H 99 Inital Vital Signs reviewed: Yes General: Well nourished, Well developed, No Acute Distress Head: Normocephalic, Atraumatic Eyes: Perrl, EOMI Cardiovascular: Regular rate, Regular rhythm Respiratory: No distress Extremities: No edema, Tenderness - There is tenderness near the IV site. There is no erythema, warmth induration, lymphangitis or epitrochlear lymphadenopathy.. Negative for: Nontender Skin: Normal color, Trauma - IV site Neurological: Alert, Oriented x3, Cranial nerves II-XII grossly intact, Normal Strength, Normal Sensation Diagnostic/Tx/Re-eval - Medical Decision Making She has evidence of superficial thrombophlebitis. Patient was instructed what to do. There is no concern for septic superficial thrombophlebitis. ED Disposition - Plan for ED Patient: Disposition: Home or Assisted Living Diagnosis: Superficial thrombophlebitis Instructions: ED Phlebitis Superficial Referrals: Suzanne Manzanares OBGYN SPECIALIST, OBGYN SPECIALIST-C [Primary Care Provider] - 1 Week if not improving Additional Instructions: 1. Hot compresses to area 6-8 times a day 2. 1 aspirin in the morning and 1 aspirin in the evening for the next 3 to 5 days.
== END 2020-03-19 15:58 | disposition home or self-care (01) ==
LOC: ED 15:57
PROVIDERS: Emergency Provider Emergency Medicine; PCP Nurse Practitioner Family
DX: I80.8 Phlebitis and thrombophlebitis of other sites (principal)
CPT/HCPCS: 99282

== ENCOUNTER 2021-06-29 10:19 | Emergency (ER) | payer BC, SELFPAY ==
[2021-06-29 10:20] VITALS: BP 138/88; PULSE 97; RESP 16; TEMP 36.7; O2SAT 98; BMI 37.2
--- NOTE | 2021-06-29 10:59 | EDS_ITS ---
HPI History of Present Illness Chief Complaint: Other, Pain/Inj Detail of Chief Complaint: Right breast discomfort and swelling Informant: patient Onset/Context/Timing Onset: Weeks Context: Gradual Onset Timing: Continuous Current Severity: Mild Maximum Severity: Moderate Narrative Narrative: 22 female has had right breast pain for approximately 3 weeks. She is developed mild swelling. No redness. No fever. No nipple discharge or bleeding. She was seen by her GEOSPATIAL SYSTEMS INTEGRATOR at the [facility] and they have a breast ultrasound scheduled on 07/09/2021. She is now having more discomfort. She does have a history of a prior right lumpectomy in 2013 that was benign. There is family history of breast cancer. She has had no other symptoms. Prior similar symptoms: Yes Recent Illness/Hospitalization: No PFSH PFSH Medical History no medical history Home Medications etonogestrel 68 mg SQ X1 01/08/19 [History Last Taken 05/08/19 08:00] zonisamide 50 mg PO BID 05/03/19 [History Last Taken Unknown] loratadine 10 mg PO PRN PRN 09/25/19 [History Last Taken Unknown] Allergy/AdvReac Type Severity Reaction Status Date / Time nickel Allergy Rash Verified 06/29/21 10:23 Surgical History no surgical history Social History Smoking Status: Never smoker ROS ROS ED ROS Narrative Right breast discomfort. Review of Systems ROS Unobtainable: Denies due to encephalopathy Constitutional Constitutional ED: Denies fever(s) Eyes Eyes: Denies change in vision ENT ENT ED: Denies ear pain Cardiovascular Cardiovascular: Denies chest pain Respiratory/Chest Respiratory/Chest: Denies dyspnea Gastrointestinal Gastrointestinal: Denies abdominal pain Genitourinary Genitourinary ED: Denies dysuria Musculoskeletal Musculoskeletal: Denies myalgias Integumentary Denies rash Neurologic Neurologic: Denies headache(s) Psychiatric Psychiatric: Denies depression Endocrine Endocrinology: Denies polyuria Allergic/Immunologic Allergic/Immunologic ED: Denies urticaria EXAM Physical Exam Narrative Exam Narrative: 22-year female no acute distress. Vital signs stable afebrile. HEENT exam normal. Lungs are clear equal symmetrical bilaterally. Heart regular rhythm rate about 90 no murmur. Abdomen soft nontender. Moving all 4 extremities. No edema. Right breast exam was done with a female nurse present in the room. Patient's right breast in the right lateral lower quadrant is mildly swollen. Minimally tender. No redness. No warmth. No discharge from the nipple. I do not feel any appreciable mass. There is mild fullness to the right lateral lower quadrant. The right axilla is nontender without any lymphadenopathy. There is no signs of cellulitis on the chest wall. Const Vital Signs: 06/29/21 10:20 Temperature 98.0 F Temperature Source Temporal Pulse Rate 97 Respiratory Rate 16 Blood Pressure 138/88 H Blood Pressure Mean 104 Pulse Ox 98 Oxygen Delivery Method Room Air Positive well nourished and well developed; Negative for obese, cachectic, contractures or unkempt General Appearance ED: well developed and NAD; Negative for unkempt, cachectic, contractures, cyanotic, diaphoretic or pallor Nutritional Appearance: Negative for cachectic or obese HEENT Reports moist mucous membranes Negative for trauma Eyes PERRL and EOMs intact bilaterally Neck no lymphadenopathy, supple and no JVD General: Negative for tenderness Chest Wall inspection of chest normal and palpation of chest normal Resp normal respiratory effort and clear to auscultation bilaterally Effort and Inspection: Negative for pain with movement Auscultation: Negative for rales or rhonchi Cardio regular rate, regular rhythm, S1 normal heart sound, S2 normal heart sound and no murmurs GI normal to inspection, nondistended, normoactive bowel sounds, non-tender and non-distended Palpation: soft Back/Spine no CVA tenderness General Back: Negative for CVA tenderness Cervical Spine: Negative for cervical spine tenderness Extremity normal to inspection General Extremety ED: Negative for edema or tenderness General Extremity: Negative for edema Neuro oriented x3 and CN's II-XII intact bilaterally Sensorium / Orientation: alert and orientation impaired; Negative for lethargic or stuporous Motor Exam: strength 5/5 throughout Psych mental status grossly normal Appearance: Negative for unkempt Skin no rashes or lesions noted and no wounds General Skin Exam: Negative for jaundice or pallor MDM MDM MDM Narrative Medical decision making narrative: Patient with mild swelling and discomfort in her right breast. There is no signs of infection. There is no palpable mass. This may be secondary to hormones, breast cyst are obviously potential malignancy. Patient understands really no further testing to do today in the emergency department unable to get a mammogram or breast ultrasound to the emergency department. She will follow up with her GEOSPATIAL SYSTEMS INTEGRATOR tomorrow to see if they can move up her breast ultrasound to a sooner date. Discharge Plan Triage Chief Complaint: Other, Pain/Inj ED Provider: Gaurang Aquino Dx/Rx/DC Orders Clinical Impression: Breast swelling Instructions: ED Breast Lump, Uncertain Cause Prescriptions: No Action etonogestrel 68 MG implant 68 mg SQ X1 RF: 0 zonisamide 25 MG capsule 50 mg PO BID RF: 0 loratadine 10 MG capsule 10 mg PO PRN PRN (Reason: Allergies) RF: 0 Primary Care Provider: Dru Bahena NP Referrals: Jessa Leiva MD [STAFF PHYSICIAN] - 1 Day Dru Bahena NP, AIRPLANE INSPECTOR-C [Primary Care Provider] - Activity Restrictions/Additional Instructions: Call follow-up with your GEOSPATIAL SYSTEMS INTEGRATOR tomorrow see if there is any way they can move up your breast ultrasound to sometime this week. If not see if they could order to have it done here at the hospital. Disposition Disposition: Home, Self Care
== END 2021-06-29 11:13 | disposition home or self-care (01) ==
PROVIDERS: Emergency Provider Emergency Medicine; PCP Nurse Practitioner Family; Visit Provider Emergency Medicine
DX: N64.4 Mastodynia (principal); N63.10 Unspecified lump in the right breast, unspecified quadrant; Z80.3 Family history of malignant neoplasm of breast
CPT/HCPCS: 99282